=== PATIENT | male | born 1980 | race Caucasian/White ===

== ENCOUNTER → 2020-12-18 | Outpatient (CLI) | payer MEDICARE, OTHER | LOC: KOH-I 10:30 | DX: S52.571A Other intraarticular fracture of lower end of right radius, initial encounter for closed fracture (principal) | CPT/HCPCS: 73200 ==

== ENCOUNTER → 2021-11-26 | Outpatient (CLI) | payer MEDICARE, OTHER | LOC: KOH-I 11-25 09:00 → EMI 10:12 | DX: S66.001A Unspecified injury of long flexor muscle, fascia and tendon of right thumb at wrist and hand level, initial encounter (principal) | CPT/HCPCS: 73221 ==